=== PATIENT | female | born 1980 | race African-American/Black ===

== ENCOUNTER 2018-02-17 00:56 | Emergency (ER) | payer MEDICAID ==
[~2018-02-17] VITALS: Ht 170.2 cm; Wt 90.0 kg
[2018-02-17] MEDS ORDERED: HYDROCODONE/APAP 7.5/325MG 1 TAB TABLET PO ONE (07:45)
[2018-02-17 07:48] VITALS: BP 125/69
== END 2018-02-17 10:35 | disposition home or self-care (01) ==
LOC: ER 00:56
DX: M79.672 Pain in left foot (principal); M79.671 Pain in right foot; Z88.0 Allergy status to penicillin; V03.10XA Pedestrian on foot injured in collision with car, pick-up truck or van in traffic accident, initial encounter; Y93.89 Activity, other specified; Y92.89 Other specified places as the place of occurrence of the external cause; Y99.8 Other external cause status
CPT/HCPCS: 72125; 73590; 73620; 99284; Z7610